=== PATIENT | male | born 1990 | race Caucasian/White ===

== ENCOUNTER 2017-03-02 18:28 | Emergency (ER) | payer SELFPAY ==
[~2017-03-02] VITALS: Ht 170.2 cm; Wt 65.5 kg
[2017-03-02 19:41] VITALS: Ht 170.2 cm; Wt 65.5 kg
[2017-03-02] MEDS ORDERED: SOD CHLORIDE 0.9% 1,000 ML IV STA (21:35)
[2017-03-02] MEDS ORDERED: ONDANSETRON 4 MG INJ IV STA (21:35)
[2017-03-02] MEDS ORDERED: morphine 4 MG/ML VIAL IV STA (21:35)
--- NOTE | 2017-03-02 22:15 | RADRPT ---
PROCEDURE: CT Abdomen and Pelvis without contrast. CLINICAL INDICATION: Abdominal and pelvic pain. Left lower quadrant pain. TECHNIQUE: CT scan of the abdomen and pelvis without contrast was performed. Coronal and sagittal reformatted images were obtained from the axial source images. Images were reviewed on a high-resolu [employer] PACS workstation. Total exam DLP is 392.61 mGy-cm. CTDIvol is 7.18 mGy. One or more of the [facility] dose reduction techniques were used: Automated exposure control, adjustment of the mA and/or kV according to patient size, use of iterative reconstruction technique. COMPARISON: None. FINDINGS: The lung bases are normal. There is no pleural effusion. The liver is normal in size and attenuation. There is no focal hepatic lesion. The gallbladder and bile ducts are normal. The spleen is normal in size. There is no focal splenic lesion. Both adrenals are normal with no enlargement or mass. The pancreas is unremarkable with no mass or evidence of pancreatitis. There is no renal mass or hydronephrosis. There is no renal calculus or ureteral calculus. The abdominal aorta is not dilated. There is no retroperitoneal lymphadenopathy or mass. There is no pelvic lymphadenopathy or mass. The bladder and distal ureters are normal. The periappendiceal region is unremarkable with no evidence of appendicitis. The appendix is well se en and appears normal. The bowel and mesentery are normal. There is no free fluid or free gas. The osseous structures are unremarkable with no fracture or lytic lesion. IMPRESSION: 1. No urinary tract calculus or hydronephrosis. 2. Normal appendix. 3. No evidence of diverticulitis. 4. Otherwise unremarkable CT scan of the abdomen and pelvis. RPTAT: QQ .Orville Johnson MD, Date Time Electronically viewed and signed by .Orville Johnson MD, MD on 03/02/2017 22:15 .R/
[2017-03-02 22:25] LABS: ABNORMAL IP MESSAGE 1; HEMATOCRIT 45.1 % (42.0-52.0); HEMOGLOBIN 14.6 g/dl (14.0-18.0); MEAN CORPUSCULAR HEMOGLOBIN 28.5 pg (29.0-33.0); MEAN CORPUSCULAR HGB CONC 32.4 g/dl (32.0-37.0); MEAN CORPUSCULAR VOLUME 88.1 fl (82.0-101.0); MEAN PLATELET VOLUME 10.8 fl (7.4-10.4); PLATELET COUNT 224 10^3/UL (140-415); POSITIVE DIFF @See below; RED BLOOD COUNT 5.12 10^6/ul (4.70-6.10); RED CELL DISTRIBUTION WIDTH 11.9 % (11.5-14.5); WHITE BLOOD COUNT 11.7 10^3/ul (4.8-10.8)
[2017-03-02 22:30] LABS: ADD UMIC NO; UR ASCORBIC ACID NEGATIVE (NEGATIVE); UR BILIRUBIN (Dip) NEGATIVE (NEGATIVE); UR BLOOD (Dip) NEGATIVE (NEGATIVE); UR CLARITY CLEAR (CLEAR); UR COLOR YELLOW (YELLOW); UR GLUCOSE (Dip) NEGATIVE (NEGATIVE); UR KETONES (Dip) NEGATIVE (NEGATIVE); UR LEUKOCYTE ESTERASE (Dip) NEGATIVE Leu/ul (NEGATIVE); UR NITRITE (Dip) NEGATIVE (NEGATIVE); UR SPECIFIC GRAVITY (Dip) 1.015 (1.003-1.030); UR TOTAL PROTEIN (Dip) NEGATIVE (NEGATIVE); UR UROBILINOGEN (Dip) NEGATIVE (NEGATIVE)
[2017-03-02 22:48] LABS: EOSINOPHILS % (M) 21 % (0-7); MONOCYTES % (M) 8 % (0-11); PLATELET ESTIMATE NORMAL; REACTIVE LYMPHOCYTES% (M) 4 % (0-0)
[2017-03-02 22:49] LABS: ALBUMIN 4.8 g/dl (3.3-4.9); ALBUMIN/GLOBULIN RATIO 1.26; BILIRUBIN,INDIRECT 0.7 mg/dl (0-1.1); BILIRUBIN,TOTAL 0.7 mg/dl (0.2-1.3); CALCIUM 9.9 mg/dl (8.4-10.2); CREATININE 0.85 mg/dl (0.61-1.24); POTASSIUM 3.7 mmol/L (3.5-5.1); TOTAL PROTEIN 8.6 g/dl (6.1-8.1)
[2017-03-02 22:52] LABS: INR 1.1; PROTIME 14.2 Sec (12.2-14.2); PT RATIO 1.1
[2017-03-02 22:53] LABS: PARTIAL THROMBOPLASTIN TIME 31.8 Sec (25.0-35.0)
[2017-03-02] MEDS ORDERED: OMEP20CA16 PO (23:02)
[2017-03-02 23:20] VITALS: BP 125/61; PULSE 65; RESP 20
--- NOTE | 2017-03-03 00:49 | ERD ---
ER Documentation Chief Complaint Date/Time DATE: 03/03/17 TIME: 00:45 Chief Complaint LUQ abd pain x 3 days; denies N/V HPI Patient is a 26-year-old male presenting to the emergency department with complaints of left upper quadrant pain intermittently for the past 3 days. It lasts approximately 10 minutes and then resolve spontaneously. He describes it as aching. Last bowel movement was approximately 4 hours ago and was normal for the patient. He denies testicular pain, urinary symptoms, nausea, vomiting , diarrhea, fevers, chills, or other symptoms currently. ROS All systems reviewed and are negative except as per history of present illness. Medications Home Meds Active Scripts Omeprazole* (Omeprazole*) 20 Mg Capsule., 20 MG PO DAILY, #20 Prov:GI SAEED PA-C 03/02/17 Allergies Allergies: Coded Allergies: No Known Allergy (Unverified , 03/02/17) PMhx/Soc Medical and Surgical Hx: pt denies Medical Hx, pt denies Surgical Hx History of Surgery: No Anesthesia Reaction: No Hx Neurological Disorder: No Hx Respiratory Disorders: No Hx Cardiac Disorders: No Hx Psychiatric Problems: No Hx Miscellaneous Medical Probl: No Hx Alcohol Use: No Hx Substance Use: No Hx Tobacco Use: No Smoking Status: Never smoker Physical Exam Vitals Vital Signs Date Time Temp Pulse Resp B/P Pulse Ox O2 Delivery O2 Flow Rate FiO2 03/02/17 23:20 65 20 125/61 99 Room Air 03/02/17 19:41 98.5 76 20 137/74 100 Physical Exam Const: Nontoxic, well-appearing male in no acute distress. Head: Atraumatic Eyes: Normal Conjunctiva ENT: Normal External Ears, Nose and Mouth. Neck: Full range of motion..~ No meningismus. Resp: Clear to auscultation bilaterally Cardio: Regular rate and rhythm, no murmurs Abd: Soft, left upper quadrant tenderness to palpation, no rebound tenderness or guarding, no McBurney's point tenderness, non distended. Normal bowel sounds Skin: No petechiae or rashes Ext: No cyanosis, or edema Neur: Awake and alert Psych: Normal Mood and Affect Result Diagram: 03/02/17214403/02/172144 Results 24 hrs Laboratory Tests Test 03/02/17 21:45 White Blood Count 11.710^3/ul Red Blood Count 5.1210^6/ul Hemoglobin 14.6g/dl Hematocrit 45.1% Mean Corpuscular Volume 88.1fl Mean Corpuscular Hemoglobin 28.5pg Mean Corpuscular Hemoglobin Concent 32.4g/dl Red Cell Distribution Width 11.9% Platelet Count 31132^3/UL Mean Platelet Volume 10.8fl Neutrophils % % Segmented Neutrophils % (Manual) 47% Lymphocytes % % Lymphocytes % (Manual) 20% Reactive Lymphocytes % (Manual) 4% Monocytes % % Monocytes % (Manual) 8% Eosinophils % % Eosinophils % (Manual) 21% Basophils % % Nucleated Red Blood Cells % 0.0/100WBC Neutrophils # 10^3/ul Absolute Lymphocytes (Manual) 2.310^3/ul Lymphocytes # 10^3/ul Reactive Lymphocytes # 0.410^3/ul Monocytes # 10^3/ul Absolute Monocytes (Manual) 0.910^3/ul Eosinophils # 10^3/ul Basophils # 10^3/ul Nucleated Red Blood Cells # 10^3/ul Platelet Estimate NORMAL Prothrombin Time 14.2Sec Prothrombin Time Ratio 1.1 INR International Normalized Ratio 1.10 Activated Partial Thromboplast Time 31.8Sec Urine Color YELLOW Urine Clarity CLEAR Urine pH 6.0 Urine Specific [place] 1.015 Urine Ketones NEGATIVEmg/dL Urine Nitrite NEGATIVEmg/dL Urine Bilirubin NEGATIVEmg/dL Urine Urobilinogen NEGATIVEmg/dL Urine Leukocyte Esterase NEGATIVELeu/ul Urine Hemoglobin NEGATIVEmg/dL Urine Glucose NEGATIVEmg/dL Urine Total Protein NEGATIVEmg/dl Sodium Level 141mmol/L Potassium Level 3.7mmol/L Chloride Level 103mmol/L Carbon Dioxide Level 29mmol/L Anion Gap 13 Blood Urea Nitrogen 16mg/dl Creatinine 0.85mg/dl Glucose Level 83mg/dl Calcium Level 9.9mg/dl Total Bilirubin 0.7mg/dl Direct Bilirubin 0.00mg/dl Indirect Bilirubin 0.7mg/dl Aspartate Amino Transf (AST/SGOT) 31IU/L Alanine Aminotransferase (ALT/SGPT) 51IU/L Alkaline Phosphatase 84IU/L Total Protein 8.6g/dl Albumin 4.8g/dl Globulin 3.80g/dl Albumin/Globulin Ratio 1.26 Lipase 60U/L Current Medications Medications (Trade) Dose Ordered Sig/Magalis Route PRN Reason Start Time Stop Time Status Last Admin Dose Admin Sodium Chloride (NS) 1,000 ml @ 1,000 mls/hr Q1H STAT IV 03/02/17 21:35 03/02/17 22:34 DC 03/02/17 21:58 Morphine Sulfate (morphine) 4 mg ONCE STAT IV 03/02/17 21:35 03/02/17 21:37 DC 03/02/17 21:57 Ondansetron HCl (Zofran Inj) 4 mg ONCE STAT IV 03/02/17 21:35 03/02/17 21:37 DC 03/02/17 21:58 Procedures/MDM 26-year-old male presents to the emergency department with complaints of left upper quadrant pain for the past 3 days. The patient was given IV morphine, IV Zofran, IV fluids in the department and he was feeling improved on reevaluation. Laboratory: Slight leukocytosis at 11.7. This is a nonspecific finding. No signs of anemia. Chemistry panel shows no significant acute abnormalities. Urinalysis is negative for leukocytes, proteinuria, or hematuria. CT abdomen and pelvis without contrast showed no significant acute abnormalities. Results were shared with the patient and he was given a copy. Left upper quadrant abdominal pain differentials include muscle strain, GERD, and others. Etiology was unclear, however a threatening pathology was ruled out. The patient is to return immediately for new or worsening symptoms. Strict ER return precautions were discussed. Close follow-up with the primary care physician was advised. The patient was given a prescription for omeprazole. He was stable and appropriate for outpatient management. I shared my medical decision making with the patient and he was in agreement. PROCEDURE: CT Abdomen and Pelvis without contrast. CLINICAL INDICATION: Abdominal and pelvic pain. Left lower quadrant pain. TECHNIQUE: CT scan of the abdomen and pelvis without contrast was performed. Coronal and sagittal reformatted images were obtained from the axial source images. Images were reviewed on a high-resolution PACS workstation. Total exam DLP is 392.61 mGy-cm. CTDIvol is 7.18 mGy. One or more of the following dose reduction techniques were used: Automated exposure control, adjustment of the mA and/or kV according to patient size, use of iterative reconstruction technique. COMPARISON: None. FINDINGS: The lung bases are normal. There is no pleural effusion. The liver is normal in size and attenuation. There is no focal hepatic lesion. The gallbladder and bile ducts are normal. The spleen is normal in size. There is no focal splenic lesion. Both adrenals are normal with no enlargement or mass. The pancreas is unremarkable with no mass or evidence of pancreatitis. There is no renal mass or hydronephrosis. There is no renal calculus or ureteral calculus. The abdominal aorta is not dilated. There is no retroperitoneal lymphadenopathy or mass. There is no pelvic lymphadenopathy or mass. The bladder and distal ureters are normal. The periappendiceal region is unremarkable with no evidence of appendicitis. The appendix is well seen and appears normal. The bowel and mesentery are normal. There is no free fluid or free gas. The osseous structures are unremarkable with no fracture or lytic lesion. IMPRESSION: 1. No urinary tract calculus or hydronephrosis. 2. Normal appendix. 3. No evidence of diverticulitis. 4. Otherwise unremarkable CT scan of the abdomen and pelvis. RPTAT: QQ .Orville Johnson MD, MD Date Time Electronically viewed and signed by .Orville Johnson MD, on 03/02/2017 22:15 Departure Diagnosis: Primary Impression: Abdominal pain Abdominal location: unspecified location Qualified Code: R10.9 - Abdominal pain, unspecified abdominal location Condition: Fair Patient Instructions: Abdominal Pain Ref[facility] Usted se briggs hecho un examen mdico de control que le indica que no est en lynsey condicin que requiera tratamiento urgente en el Departamento de Emergencia. Un estudio ms profundo y el tratamiento de douglass condicin pueden esperar sin ningn riesgo hasta que usted sea atendida/o en el consultorio de douglass mdico o lynsey cl simona. Es responsabilidad suya arreglar lynsey ayesha para el seguimiento del pete. MANEJO DE CONDICIONES NO URGENTES EN EL FUTURO 1) Si usted tiene un mdico de atencin primaria: Usted debera llamar a douglass mdico de atencin primaria antes de venir al departamento de emergencia. Despus de las horas de consultorio, douglass doctor o douglass asociado/a est disponible por telfono. El mdico o enfermero de cher en el servicio telefnico puede asesorarle por gricelda medio para atender el problema, o pete contrario se puede programar lynsey ayesha. 2) Si usted no tiene un mdico de atencin primaria: Llame al mdico o clnica de referencia que aparece abajo vivek las horas de consultorio para hacer lynsey ayesha para que le vean. CLINICAS: [place] [id number] [phone] [facility] [phone] [facility] [phone] [place] [id number] [phone] [place] [id number] [phone] [facility]. [phone] [address] Additional Instructions: No mas mejor en 2-3 farfan, regresar. Mas peor en 24 horas, regresear rapidamente. Ir a doctor primario in 5-7 farfan. Usar instrucciones cuando eyal medicamento. GI SAEED PA-C Mar 03, 2017 00:49
== END 2017-03-03 00:34 | disposition home or self-care (01) ==
LOC: FTE 18:28
DX: R10.12 Left upper quadrant pain (principal)
CPT/HCPCS: 36415; 74176; 80053; 81003; 83690; 85025; 85610; 85730; 96374; 96375; 99285; J2270; J2405; J7030